=== PATIENT | female | born 1965 | race Caucasian/White ===

== ENCOUNTER 2016-10-30 07:39 | Emergency (ER) | payer OTHER ==
[~2016-10-30 07:39] MED LIST: CLIN300C8 PO; PHEN100T82 PO; PRED20TA PO; TAMO20TA PO; VALS40TA2 PO
[2016-10-30 07:45] VITALS: BP 127/86
--- NOTE | 2016-10-30 07:58 | PHYS DOC ---
Past History Past Medical History: Hypertension, Other Past Surgical History: Other Smoking: Non-smoker Alcohol Use: Occasionally Drug Use: None Adult General HPI HPI Patient is a 51 year old F who presents with cough for the past week. 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 Patient had a persistent cough and URI symptoms for the past week. Patient denies any chest pain. Patient denies any fevers. Patient has no smoking history. Patient has no other complaints. Review of Systems Review of Systems GEN: Denies fevers, chills, sweats HEENT: Denies blurred vision, sore throat CV: Denies chest pain RESP:cough GI: Denies n/v/d NEURO: Denies confusion, dizziness MSK: Denies weakness, joint pain/swelling Allergies Allergies Allergies Coded Allergies Type Severity Reaction Last Updated Verified amoxicillin Allergy Severe Unknown 03/15/15 Yes miconazole Allergy Intermediate rash 04/29/16 Yes tetracycline Allergy Intermediate rash 11/08/14 Yes Latex, Natural Rubber Allergy Unknown 09/10/15 Yes Sulfa (Sulfonamide Antibiotics) Allergy Unknown Rash 11/08/14 Yes erythromycin base Allergy Unknown Rash 11/08/14 Yes neomycin Allergy Unknown Rash 11/08/14 Yes Uncoded Allergies Type Severity Reaction Last Updated Verified RESTRICTED EXTREMITY Adverse Reaction Severe RESTRICTED RIGHT EXTREMITY Physical Exam Physical Exam GEN.: No apparent distress. Alert and oriented. HEENT: Head is normocephalic, atraumatic NECK: Supple. LUNGS: CTAB. HEART: RRR, S1, S2 present. Peripheral pulses intact ABDOMEN: Soft, nontender. Positive bowel sounds. EXTREMITIES: Without any cyanosis. NEUROLOGIC: Normal speech, normal tone PSYCHIATRIC: Normal affect, normal mood. SKIN: No ulcerations EKG EKG [] Radiology/Procedures Radiology/Procedures Chest x-ray NAD[] Course & Med Decision Making Course & Med Decision Making Pertinent Labs and Imaging studies reviewed. (See chart for details) MDM: After reviewing the chart, CC/HPI/PMH, physical exam, [radiological results], I do not believe the patient has significant rust or infection warranting further workup and/or admission at this time. Based on the chest x-ray and physical exam findings I do not believe the patient has pneumonia warranting antibiotics. Recommended [id number] symptomatic treatment for her cough. Recommended short-term follow-up with PCP. Patient stable for discharge. Additional verbal discharge instructions were provided to the patient and that if symptoms get worse or any new symptoms arise that are worrisome to the patient she is to return to the emergency room immediately [] Dragon Disclaimer Dragon Disclaimer This chart was dictated in whole or in part using Voice Recognition software in a busy, high-work load, and often noisy Emergency Department environment. It may contain unintended and wholly unrecognized errors or omissions. Departure Departure: Impression: Primary Impression: Cough Additional Impression: URI (upper respiratory infection) Disposition: 01 HOME, SELF-CARE Condition: IMPROVED Referrals: CORA SCOTT DO (PCP) Patient Instructions: Cough, Adult Additional Instructions: Please follow up with your family doctor next one to 2 days and return if symptoms increase Problem Qualifiers KARIN CORTEZ DO Oct 30, 2016 07:58
--- NOTE | 2016-10-30 08:12 | RAD ---
PA and lateral chest radiographs 10/30/2016 Clinical history: Cough for one week. PA and lateral digital radiographs of the chest were obtained. Comparison study is dated 10/22/2011. The cardiac silhouette is normal in size. The thoracic aorta is mildly tortuous. No acute pulmonary infiltrate is seen. No pleural effusion or pneumothorax is noted. Degenerative changes are seen involving the thoracic spine. Impression: No acute abnormality is seen.
== END 2016-10-30 08:32 | disposition home or self-care (01) ==
LOC: ER 07:39
DX: J06.9 Acute upper respiratory infection, unspecified (principal); I10 Essential (primary) hypertension; Z88.2 Allergy status to sulfonamides; Z88.8 Allergy status to other drugs, medicaments and biological substances; Z88.1 Allergy status to other antibiotic agents; Z91.040 Latex allergy status
CPT/HCPCS: 71020; 99284